=== PATIENT | male | born 1970 | race Hispanic/Latino ===

== ENCOUNTER 2018-06-05 14:11 | Emergency (ER) | payer OTHER ==
[2018-06-05 14:12] VITALS: BMI 38.0
[2018-06-05 14:32] VITALS: RESP 18; TEMP 98.2
--- NOTE | 2018-06-05 16:02 | ED PDOC ---
Arrival/HPI - General Chief Complaint: Abnormal Labs Historian: Patient, Family - History of Present Illness Narrative History of Present Illness (Text): 06/05/18 15:45 47 year old male, whose past medical history includes a dislocated tailbone, anxiety, depression, GERD, and aFib, who was sent to the Emergency department from Urgent Care due for aFib on EKG prior to arrival. He reports fatigue for the past week and a half. Patient states he felt occasional PVC's a few times today. Patient reports the first time this occurred it was a very stressful time in his life, but he was not under stress the following 2 times. He notes he was not started on any anticoagulants the previous time he had aFib, but reports being on aspirin. Patient notes fatigue and feeling lightheaded for the past 1.5 weeks. He notes feeling generalized weakness, however denies syncopal episodes or chest pain. Patient denies any fevers, chills, chest pain, shortness of breath, abdominal pain, nausea, vomiting, diarrhea, back pain, neck pain, urinary symptoms, headache, dizziness, or any other complaint. Of note, he openly admits to social consumption of alcohol and is a former smoker. PMD: none. Time/Duration: Prior to Arrival Symptom Onset: Sudden Symptom Course: Unchanged Activities at Onset: Rest Context: Home Past Medical History - Provider Review Nursing Documentation Reviewed: Yes - Travel History Have you recently traveled outside [place] w/in the past 3 mons?: No - Infectious Disease Hx of Infectious Diseases: None - Tetanus Immunization Tetanus Immunization: Unknown - Cardiac Hx Cardiac Arrhythmia: Yes (A-FIB) - Musculoskeletal/Rheumatological Hx Falls: No - Gastrointestinal Hx Gastroesophageal Reflux: Yes - Psychiatric Hx Anxiety: Yes Hx Depression: Yes Hx Substance Use: No - Past Surgical History Past Surgical History: Non-Contributing - Anesthesia Hx Anesthesia: No Hx Anesthesia Reactions: No Hx Malignant Hyperthermia: No - Suicidal Assessment Feels Threatened In Home Enviroment: No Family/Social History - Physician Review Nursing Documentation Reviewed: Yes Family/Social History: No Known Family HX Smoking Status: Former Smoker Hx Alcohol Use: Yes Hx Substance Use: No Hx Substance Use Treatment: No Allergies/Home Meds Allergies/Adverse Reactions: Allergies clarithromycin Allergy (Verified 06/05/18 16:00) URTICARIA Penicillins Allergy (Verified 06/05/18 16:00) ANAPHYLAXIS shellfish derived Allergy (Verified 06/05/18 16:00) ANAPHYLAXIS Home Medications: Home Meds Medication Instructions Recorded Confirmed Escitalopram [Lexapro] 5 mg PO DAILY 09/09/11 10/11/13 Metoprolol Tartrate [Lopressor] 25 mg PO DAILY 09/09/11 10/11/13 Pantoprazole Sodium [Protonix] 40 mg PO BID 09/09/11 10/11/13 Lamotrigine [Lamictal] 50 mg PO QAM 10/11/13 10/11/13 Lamotrigine [Lamictal] 100 mg PO QPM 10/11/13 10/11/13 Lorazepam [Ativan] 0.5 mg PO HS 10/11/13 10/11/13 Review of Systems - Physician Review All systems were reviewed & negative as marked: Yes - Review of Systems Constitutional: Fatigue. absent: Normal, Fevers, Night Sweats Respiratory: Normal. absent: SOB Cardiovascular: Other (Pt presents from Urgent Care for aFib on EKG ). absent: Normal, Chest Pain Gastrointestinal: Normal. absent: Abdominal Pain, Diarrhea, Nausea, Vomiting Genitourinary Male: Normal. absent: Urinary Output Changes Musculoskeletal: Normal. absent: Back Pain, Neck Pain Neurological: Other (Pt notes feeling lightheaded for the past week and a half). absent: Normal, Headache, Dizziness Physical Exam Vital Signs Reviewed: Yes Vital Signs Temp Pulse Resp BP Pulse Ox 06/05/18 15:58 74 18 135/74 97 06/05/18 14:31 98.2 F 86 18 119/61 97 Temperature: Afebrile Blood Pressure: Normal Pulse: Regular Respiratory Rate: Normal Appearance: Positive for: Well-Appearing, Non-Toxic, Comfortable Pain Distress: None Mental Status: Positive for: Alert and Oriented X 3 - Systems Exam Head: Present: Atraumatic, Normocephalic Pupils: Present: PERRL Extroacular Muscles: Present: EOMI Conjunctiva: Present: Normal Mouth: Present: Moist Mucous Membranes Neck: Present: Normal Range of Motion Respiratory/Chest: Present: Clear to Auscultation, Good Air Exchange. No: Respiratory Distress, Accessory Muscle Use Cardiovascular: Present: Regular Rate and Rhythm, Normal S1, S2, Peripheal Pulses Present. No: Murmurs, Irregular Rhythm, Rub, Gallop Abdomen: No: Tenderness, Distention, Peritoneal Signs Back: Present: Normal Inspection Upper Extremity: Present: Normal Inspection. No: Cyanosis, Edema Lower Extremity: Present: Normal Inspection. No: Edema Neurological: Present: GCS=15, Speech Normal Skin: Present: Warm, Dry, Normal Color. No: Rashes Psychiatric: Present: Alert, Oriented x 3, Normal Insight, Normal Concentration Medical Decision Making ED Course and Treatment: 06/05/18 15:45 Impression: 47 year old male who presents to the emergency department from Urgent Care for aFib on EKG prior to arrival. Differential Diagnosis included but are not limited to: --Atrial arrythmia(paroxysmal atrial fibrillation/a flutter) --PNA Plan: -- EKG -- Labs -- X-Ray of chest -- Reassess and disposition Progress Notes: 06/05/18 17:13 Labs reviewed with no leukocytosis, troponin or BNP noted. Patient reevaluated and noted to be sleeping. EKG ordered and reviewed showing no evidence of atrial arrhythmias. Patient and updated on lab findings and encouraged to establish consistent follow up with a manufacturing area manager. Cardiology follow up provided as well as encouragement to continue taking his prescribed Lopressor for rate control. Opportunity for questions provided and answered. Patient is stable for discharge. - Lab Interpretations Lab Results: 06/05/18 14:35 06/05/18 14:35 Lab Results 06/05/18 14:35: Sodium 141, Potassium 3.8, Chloride 102, Carbon Dioxide 27, Anion Gap 16, BUN 11, Creatinine 0.9, Est GFR ( Amer) > 60, Est GFR (Non- Af Amer) > 60, Random Glucose 79, Calcium 9.6, Magnesium 2.0, Total Bilirubin 0.5, AST 30, ALT 36, Alkaline Phosphatase 62, Troponin I < 0.01, NT-Pro-B Natriuret Pep 64.1, Total Protein 8.4 H, Albumin 4.8, Globulin 3.7, Albumin /Globulin Ratio 1.3, Lipase 112 06/05/18 14:35: PT 12.7 H, INR 1.14, APTT 37.5 06/05/18 14:35: WBC 8.0, RBC 4.93, Hgb 15.2, Hct 44.1, MCV 89.5, MCH 30.8, MCHC 34.5, RDW 12.9, Plt Count 269, MPV 10.7, Neut % (Auto) 67.2, Lymph % (Auto) 25.9, [place] % (Auto) 4.0, Eos % (Auto) 2.5, Baso % (Auto) 0.4, Lymph # (Auto) 2.1, [place] # (Auto) 0.3, Eos # (Auto) 0.2, Baso # (Auto) 0.03, Absolute Neuts (auto) 5.39 I have reviewed the lab results: Yes - RAD Interpretation Narrative RAD Interpretations (Text): X-Ray of chest reviewed by radiologist, shows: Dictated By: Raf Javier DO Dictated Date/Time: 06/05/18 16:37 Impression: No active disease. 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 Rate : 79 BPM Rhythm : NSR Interpretation : LAD, LVH, No ST-elevations Interpreted by ED Physician: Yes Type: 12 lead EKG - Scribe Statement The provider has reviewed the documentation as recorded by the Scribe Kinga Molina All medical record entries made by the Scribe were at my direction and personally dictated by me. I have reviewed the chart and agree that the record accurately reflects my personal performance of the history, physical exam, medical decision making, and the department course for this patient. I have also personally directed, reviewed, and agree with the discharge instructions and disposition. Disposition/Present on Arrival - Present on Arrival Any Indicators Present on Arrival: No History of DVT/PE: No History of Uncontrolled Diabetes: No Urinary Catheter: No History of Decub. Ulcer: No History Surgical Site Infection Following: None - Disposition Have Diagnosis and Disposition been Completed?: Yes Diagnosis: Arrhythmia Disposition: HOME/ ROUTINE Disposition Time: 17:16 Patient Plan: Discharge Condition: STABLE Discharge Instructions (ExitCare): Atrial Fibrillation, Arrhythmias (DC) Print Language: [place] Additional Instructions: All medical record entries made by the Scribe were at my direction and personally dictated by me. I have reviewed the chart and agree that the record accurately reflects my personal performance of the history, physical exam, medical decision making, and the department course for this patient. I have also personally directed, reviewed, and agree with the discharge instructions and disposition. Please follow up with your PCP in 1 week Please schedule an appointment with the manufacturing area manager in 3-5 days Referrals: Jonel Miner MD [Staff Provider] - Follow up with primary Sarai Bernstein MD [Medical Doctor] - Follow up with primary [facility] [place] - Follow up with primary Forms: [employer] (Azeri), WORK NOTE
[2018-06-05 16:33] LABS: BASO # 0.03 K/mm3 (0.0-2.0); BASO % 0.4 % (0.0-3.0); EOS # 0.2 (0.0-0.7); EOS % 2.5 % (1.5-5.0); HEMOGLOBIN 15.2 g/dL (14.0-18.0); LYMPH # 2.1 (1.2-3.4); LYMPH % 25.9 % (22.0-35.0); MEAN CELL VOLUME 89.5 fl (80.0-105.0); MEAN CORPUSCULAR HEMOGLOBIN 30.8 pg (25.0-35.0); MEAN CORPUSCULAR HGB CONC 34.5 g/dl (31.0-37.0); MEAN PLATELET VOLUME 10.7 fl (7.0-11.0); MONO # 0.3 (0.1-0.6); RBC 4.93 10^6/uL (3.5-6.1); RED CELL DISTRIBUTION WIDTH 12.9 % (11.5-14.5)
--- NOTE | 2018-06-05 16:40 | RAD ---
Date of service: 06/05/2018 HISTORY: History of afib w/ palpitations today COMPARISON: Comparison chest 10/11/2013. FINDINGS: LUNGS: Poor inspiration with low lung volumes, crowded bronchovascular markings and mild bibasilar atelectasis. PLEURA: No significant pleural effusion identified, no pneumothorax apparent. CARDIOVASCULAR: No aortic atherosclerotic calcification present. Normal cardiac size. No pulmonary vascular congestion. OSSEOUS STRUCTURES: No significant abnormalities. VISUALIZED UPPER ABDOMEN: Normal. OTHER FINDINGS: None. IMPRESSION: No active disease.
[2018-06-05 16:43] LABS: ALB/GLOB RATIO 1.3 (1.1-1.8); ALBUMIN 4.8 g/dL (3.0-4.8); ALT/SGPT 36 U/L (7-56); AST/SGOT 30 U/L (17-59); BLOOD UREA NITROGEN 11 mg/dL (7-21); CALCIUM 9.6 mg/dL (8.4-10.5); GFR NON-AFRICAN AMERICAN > 60; LIPASE 112 U/L (23-300)
[2018-06-05 16:44] LABS: INR 1.14; PARTIAL THROMBOPLASTIN TIME 37.5 Seconds (26.9-38.3); PROTHROMBIN TIME 12.7 SECONDS (9.4-12.5)
[2018-06-05 16:54] LABS: B-TYPE NATRIURETIC PEPTIDE 64.1 pg/mL (0-450); TROPONIN I < 0.01 ng/mL
[2018-06-05 18:34] VITALS: BP 123/78; PULSE 75; O2SAT 96
--- NOTE | 2018-06-06 11:07 | CARD ---
APPROVED REPORT Date of service: 06/05/2018 EKG Measurement Heart [id number] <Conclusion> Normal sinus rhythm Left axis deviation Left ventricular hypertrophy with QRS widening Abnormal ECG
--- NOTE | 2018-06-06 11:17 | CARD ---
APPROVED REPORT Date of service: 06/05/2018 EKG Measurement Heart [id number] AR [id number] <Conclusion> Normal sinus rhythm Left axis deviation Pulmonary disease pattern Left ventricular hypertrophy with QRS widening Abnormal ECG
== END 2018-06-05 15:35 | disposition home or self-care (01) ==
LOC: ED 14:11
DX: I49.9 Cardiac arrhythmia, unspecified (principal); Z87.891 Personal history of nicotine dependence